=== PATIENT | female | born 1975 | race Caucasian/White ===

== ENCOUNTER 2017-01-09 11:06 | Emergency (ER) | payer OTHER ==
[~2017-01-09] VITALS: Ht 162.6 cm; Wt 63.5 kg
[2017-01-09 11:12] VITALS: BP 110/73; PULSE 95; RESP 18; TEMP 98.3; O2SAT 98
[2017-01-09] MEDS ORDERED: ACETAMINOPHEN 500 MG TABLET PO ONE (12:00)
[2017-01-09 12:35] VITALS: BP 110/73; PULSE 95; RESP 18; TEMP 98.3; O2SAT 98
== END 2017-01-09 12:30 | disposition home or self-care (01) ==
LOC: SED 11:06
DX: S82.52XA Displaced fracture of medial malleolus of left tibia, initial encounter for closed fracture (principal); W18.40XA Slipping, tripping and stumbling without falling, unspecified, initial encounter; Y93.89 Activity, other specified; Y92.009 Unspecified place in unspecified non-institutional (private) residence as the place of occurrence of the external cause; Y99.8 Other external cause status
CPT/HCPCS: 81025; 99284